=== PATIENT | female | born 1970 | race Caucasian/White ===

== ENCOUNTER → 2023-10-19 14:08 | Outpatient (REF) | payer OTHER, SELFPAY | LOC: HWRAD 14:08 | PROVIDERS: ATTENDING PHYSICIAN Obstetrics & Gynecology; FAMILY PHYSICIAN Physician Assistant | DX: Z12.31 Encounter for screening mammogram for malignant neoplasm of breast (principal); Z78.0 Asymptomatic menopausal state | CPT/HCPCS: 77080 ==

== ENCOUNTER → 2024-01-16 06:36 | Outpatient (REF) | payer OTHER, SELFPAY ==
[2024-01-16 07:17] LABS: % Basophils 1.3 % (0-2); % Eosinophils 5.2 % (0-6); % Immature Granulocytes 0.3 % (0-0.5); % Lymphocytes 42.3 % (20.5-51.1); % Monocytes 11.8 % (1.7-9.3); % Neutrophils 39.1 % (42.2-75.2); Absolute Eosinophils 0.2 10^3/uL (0-0.7); Absolute Lymphocytes 1.3 10^3/uL (1.2-3.4); Absolute Monocytes 0.4 10^3/uL (0.1-0.6); Absolute Neutrophils 1.2 10^3/uL (1.4-6.5); Hemoglobin 14.9 g/dL (12.0-16.0); Mean Corp Hgb Conc. 34.7 g/dL (33.0-37.0); Mean Corpuscular Volume 89.4 fL (81.0-99.0); Nucleated Red Blood Cells % 0 %; Platelet Count 230 10^3/uL (130-400); Red Blood Cell Count 4.81 10^6/uL (4.20-5.40); Red Cell Dist. Width 12.9 % (11.5-14.5); White Blood Cell Count 3.1 10^3/uL (4.8-10.8)
[2024-01-16 07:47] LABS: Intact PTH 44.2 pg/ml (13.6-85.8)
[2024-01-16 08:16] LABS: ALT (SGPT) 25 U/L (0-35); AST (SGOT) 34 U/L (14-36); Albumin 4.6 g/dl (3.5-5.0); Alkaline Phosphatase 62 U/L (38-126); Blood Urea Nitrogen 18 mg/dl (7-17); Calcium 9.8 mg/dl (8.4-10.2); Carbon Dioxide 27 mmol/L (22-30); Chloride 103 mmol/L (98-107); Glucose 91 mg/dl (70-99); Magnesium 2.2 mg/dl (1.6-2.3); Phosphorus 3.6 mg/dl (2.5-4.5); Potassium 5.1 mmol/L (3.5-5.1); Sodium 145 mmol/L (135-145); Total Bilirubin 1.4 mg/dl (0.2-1.3); Total Protein 6.9 g/dl (6.3-8.2); eGFR > 60.00
[2024-01-16 08:20] LABS: Vitamin D, 25-OH*** 101 ng/mL (30-80)
[2024-01-16 08:34] LABS: TSH 1.61 uIU/ml (0.47-4.68)
[2024-01-16 10:49] LABS: tTG IgA Antibody 4.5 EU/ml (0-19); tTG IgG Antibody 11.9 EU/ml (0-19)
[2024-01-17 04:48] LABS: IgA 202 mg/dl (70-400)
== END ==
LOC: REG 06:36
PROVIDERS: ATTENDING PHYSICIAN Physician Assistant; FAMILY PHYSICIAN Physician Assistant
DX: E03.9 Hypothyroidism, unspecified (principal); E20.9 Hypoparathyroidism, unspecified; E55.9 Vitamin D deficiency, unspecified; M81.6 Localized osteoporosis [Lequesne]; R82.994 Hypercalciuria; Z51.81 Encounter for therapeutic drug level monitoring
CPT/HCPCS: 36415; 80053; 82306; 82784; 83516; 83735; 83970; 84100; 84443; 85025; 86231

== ENCOUNTER → 2024-01-18 06:39 | Outpatient (REF) | payer OTHER, SELFPAY ==
[2024-01-18 09:38] LABS: 24 Hour Urine Total Volume 2150 ml
== END ==
LOC: REG 06:39
PROVIDERS: ATTENDING PHYSICIAN Physician Assistant; FAMILY PHYSICIAN Physician Assistant
DX: E03.9 Hypothyroidism, unspecified (principal); E20.9 Hypoparathyroidism, unspecified; E55.9 Vitamin D deficiency, unspecified; M81.6 Localized osteoporosis [Lequesne]; R82.994 Hypercalciuria; Z51.81 Encounter for therapeutic drug level monitoring
CPT/HCPCS: 81050; 82340

== ENCOUNTER → 2024-02-14 10:38 | Outpatient (REF) | payer OTHER, SELFPAY ==
[2024-02-14 11:28] LABS: % Eosinophils 0.7 % (0-6); % Immature Granulocytes 0.3 % (0-0.5); % Lymphocytes 24.1 % (20.5-51.1); % Monocytes 7.6 % (1.7-9.3); % Neutrophils 66.3 % (42.2-75.2); Absolute Basophils 0.1 10^3/uL (0-0.2); Absolute Lymphocytes 1.4 10^3/uL (1.2-3.4); Absolute Monocytes 0.5 10^3/uL (0.1-0.6); Absolute Neutrophils 3.9 10^3/uL (1.4-6.5); Hematocrit 41.7 % (37.0-47.0); Hemoglobin 14.5 g/dL (12.0-16.0); Mean Corp Hgb Conc. 34.8 g/dL (33.0-37.0); Mean Corpuscular Hgb 30.3 pg (27.0-31.0); Mean Corpuscular Volume 87.2 fL (81.0-99.0); Mean Platelet Volume 10.2 fL (7.4-10.4); Nucleated Red Blood Cells % 0 %; Platelet Count 248 10^3/uL (130-400); Red Blood Cell Count 4.78 10^6/uL (4.20-5.40); White Blood Cell Count 5.9 10^3/uL (4.8-10.8)
== END ==
LOC: REG 10:38
PROVIDERS: ATTENDING PHYSICIAN Student in an Organized Health Care Education/Training Program; FAMILY PHYSICIAN Physician Assistant
DX: D72.818 Other decreased white blood cell count (principal)
CPT/HCPCS: 36415; 85025

== ENCOUNTER → 2024-03-21 07:03 | Outpatient (REF) | payer OTHER, SELFPAY ==
[2024-03-21 07:28] LABS: Ionized Calcium 1.18 mMOL/L (1.15-1.33)
[2024-03-21 07:31] LABS: % Basophils 1.3 % (0-2); % Eosinophils 4.3 % (0-6); % Immature Granulocytes 1.3 % (0-0.5); % Lymphocytes 30.3 % (20.5-51.1); % Monocytes 10.8 % (1.7-9.3); Absolute Basophils 0.1 10^3/uL (0-0.2); Absolute Eosinophils 0.2 10^3/uL (0-0.7); Absolute Immature Granulocytes 0.1 10^3/uL (0-0.05); Absolute Lymphocytes 1.4 10^3/uL (1.2-3.4); Absolute Monocytes 0.5 10^3/uL (0.1-0.6); Absolute Neutrophils 2.3 10^3/uL (1.4-6.5); Hematocrit 43.6 % (37.0-47.0); Hemoglobin 14.8 g/dL (12.0-16.0); Mean Corp Hgb Conc. 33.9 g/dL (33.0-37.0); Mean Corpuscular Hgb 30.3 pg (27.0-31.0); Mean Corpuscular Volume 89.3 fL (81.0-99.0); Mean Platelet Volume 9.9 fL (7.4-10.4); Nucleated Red Blood Cells % 0 %; Platelet Count 218 10^3/uL (130-400); Red Blood Cell Count 4.88 10^6/uL (4.20-5.40); Red Cell Dist. Width 12.9 % (11.5-14.5); White Blood Cell Count 4.5 10^3/uL (4.8-10.8)
[2024-03-21 08:17] LABS: ALT (SGPT) 24 U/L (0-35); AST (SGOT) 29 U/L (14-36); Albumin 4.6 g/dl (3.5-5.0); Alkaline Phosphatase 93 U/L (38-126); Blood Urea Nitrogen 16 mg/dl (7-17); Calcium 9.4 mg/dl (8.4-10.2); Carbon Dioxide 28 mmol/L (22-30); Chloride 104 mmol/L (98-107); Glucose 91 mg/dl (70-99); Potassium 4.2 mmol/L (3.5-5.1); Sodium 140 mmol/L (135-145); Total Bilirubin 1.6 mg/dl (0.2-1.3); Total Protein 6.9 g/dl (6.3-8.2); eGFR > 60.00
== END ==
LOC: REG 07:03
PROVIDERS: ATTENDING PHYSICIAN Student in an Organized Health Care Education/Training Program; FAMILY PHYSICIAN Physician Assistant
DX: D72.818 Other decreased white blood cell count (principal); E55.9 Vitamin D deficiency, unspecified; M81.6 Localized osteoporosis [Lequesne]; Z51.81 Encounter for therapeutic drug level monitoring
CPT/HCPCS: 36415; 80053; 82330; 85025

== ENCOUNTER → 2024-04-18 06:38 | Outpatient (REF) | payer OTHER, SELFPAY ==
[2024-04-18 08:22] LABS: % Basophils 1.2 % (0-2); % Eosinophils 9.1 % (0-6); % Immature Granulocytes 0.5 % (0-0.5); % Lymphocytes 34.1 % (20.5-51.1); % Monocytes 11.6 % (1.7-9.3); % Neutrophils 43.5 % (42.2-75.2); Absolute Basophils 0.1 10^3/uL (0-0.2); Absolute Eosinophils 0.4 10^3/uL (0-0.7); Absolute Lymphocytes 1.4 10^3/uL (1.2-3.4); Absolute Monocytes 0.5 10^3/uL (0.1-0.6); Absolute Neutrophils 1.8 10^3/uL (1.4-6.5); Hematocrit 43.9 % (37.0-47.0); Hemoglobin 14.8 g/dL (12.0-16.0); Mean Corp Hgb Conc. 33.7 g/dL (33.0-37.0); Mean Platelet Volume 10.3 fL (7.4-10.4); Nucleated Red Blood Cells % 0 %; Platelet Count 253 10^3/uL (130-400); Red Blood Cell Count 4.93 10^6/uL (4.20-5.40); Red Cell Dist. Width 12.8 % (11.5-14.5); White Blood Cell Count 4.1 10^3/uL (4.8-10.8)
== END ==
LOC: REG 06:38
PROVIDERS: ATTENDING PHYSICIAN Student in an Organized Health Care Education/Training Program; FAMILY PHYSICIAN Physician Assistant
DX: D72.818 Other decreased white blood cell count (principal); E55.9 Vitamin D deficiency, unspecified; E67.3 Hypervitaminosis D; M81.0 Age-related osteoporosis without current pathological fracture; M81.6 Localized osteoporosis [Lequesne]; Z51.81 Encounter for therapeutic drug level monitoring
CPT/HCPCS: 36415; 85025

== ENCOUNTER → 2024-05-29 06:37 | Outpatient (REF) | payer OTHER, SELFPAY ==
[2024-05-29 07:07] LABS: Ionized Calcium 1.13 mMOL/L (1.15-1.33)
[2024-05-29 07:09] LABS: % Basophils 1.5 % (0-2); % Eosinophils 4.8 % (0-6); % Immature Granulocytes 0.3 % (0-0.5); % Lymphocytes 37.5 % (20.5-51.1); % Monocytes 10.6 % (1.7-9.3); % Neutrophils 45.3 % (42.2-75.2); Absolute Basophils 0.1 10^3/uL (0-0.2); Absolute Eosinophils 0.2 10^3/uL (0-0.7); Absolute Lymphocytes 1.2 10^3/uL (1.2-3.4); Absolute Monocytes 0.4 10^3/uL (0.1-0.6); Absolute Neutrophils 1.5 10^3/uL (1.4-6.5); Hematocrit 44.4 % (37.0-47.0); Hemoglobin 14.6 g/dL (12.0-16.0); Mean Corp Hgb Conc. 32.9 g/dL (33.0-37.0); Mean Corpuscular Hgb 29.8 pg (27.0-31.0); Mean Corpuscular Volume 90.6 fL (81.0-99.0); Mean Platelet Volume 9.8 fL (7.4-10.4); Nucleated Red Blood Cells % 0 %; Platelet Count 217 10^3/uL (130-400); Red Cell Dist. Width 13.1 % (11.5-14.5); White Blood Cell Count 3.3 10^3/uL (4.8-10.8)
[2024-05-29 07:41] LABS: ALT (SGPT) 32 U/L (0-35); AST (SGOT) 30 U/L (14-36); Albumin 4.9 g/dl (3.5-5.0); Alkaline Phosphatase 95 U/L (38-126); Blood Urea Nitrogen 15 mg/dl (7-17); Calcium 9.5 mg/dl (8.4-10.2); Carbon Dioxide 28 mmol/L (22-30); Chloride 103 mmol/L (98-107); Glucose 87 mg/dl (70-99); Potassium 4.1 mmol/L (3.5-5.1); Sodium 139 mmol/L (135-145); eGFR > 60.00
== END ==
LOC: REG 06:37
PROVIDERS: ATTENDING PHYSICIAN Student in an Organized Health Care Education/Training Program; FAMILY PHYSICIAN Physician Assistant
DX: D72.818 Other decreased white blood cell count (principal); E55.9 Vitamin D deficiency, unspecified; E67.3 Hypervitaminosis D; M81.0 Age-related osteoporosis without current pathological fracture; M81.6 Localized osteoporosis [Lequesne]; Z51.81 Encounter for therapeutic drug level monitoring
CPT/HCPCS: 36415; 80053; 82330; 85025

== ENCOUNTER → 2024-07-10 06:59 | Outpatient (REF) | payer OTHER, SELFPAY ==
[2024-07-10 07:38] LABS: % Basophils 1.3 % (0-2); % Eosinophils 3.4 % (0-6); % Immature Granulocytes 0.2 % (0-0.5); % Lymphocytes 30.6 % (20.5-51.1); % Neutrophils 55.5 % (42.2-75.2); Absolute Basophils 0.1 10^3/uL (0-0.2); Absolute Eosinophils 0.2 10^3/uL (0-0.7); Absolute Lymphocytes 1.4 10^3/uL (1.2-3.4); Absolute Monocytes 0.4 10^3/uL (0.1-0.6); Absolute Neutrophils 2.6 10^3/uL (1.4-6.5); Hematocrit 44.6 % (37.0-47.0); Hemoglobin 15.2 g/dL (12.0-16.0); Mean Corp Hgb Conc. 34.1 g/dL (33.0-37.0); Mean Corpuscular Hgb 30.6 pg (27.0-31.0); Mean Corpuscular Volume 89.9 fL (81.0-99.0); Mean Platelet Volume 9.7 fL (7.4-10.4); Nucleated Red Blood Cells % 0 %; Platelet Count 229 10^3/uL (130-400); Red Blood Cell Count 4.96 10^6/uL (4.20-5.40); Red Cell Dist. Width 13.3 % (11.5-14.5); White Blood Cell Count 4.7 10^3/uL (4.8-10.8)
[2024-07-10 08:02] LABS: Erythrocyte Sed Rate 8 mm/hour (0-20)
[2024-07-10 10:47] LABS: Folate > 20.0 ng/ml (2.76-20); Vitamin B12 980 pg/ml (239-931)
[2024-07-12 06:17] LABS: ANA, IgG Reflex to HEp-2 None Detected (None Detected)
== END ==
LOC: REG 06:59
PROVIDERS: ATTENDING PHYSICIAN Nurse Practitioner Adult Health
DX: D72.819 Decreased white blood cell count, unspecified (principal)
CPT/HCPCS: 36415; 82607; 82746; 85025; 85652; 86038

== ENCOUNTER → 2024-07-17 06:58 | Outpatient (REF) | payer OTHER, SELFPAY ==
[2024-07-17 07:50] LABS: % Eosinophils 2.6 % (0-6); % Immature Granulocytes 0.4 % (0-0.5); % Lymphocytes 30.8 % (20.5-51.1); % Monocytes 7.4 % (1.7-9.3); % Neutrophils 57.8 % (42.2-75.2); Absolute Basophils 0.1 10^3/uL (0-0.2); Absolute Eosinophils 0.1 10^3/uL (0-0.7); Absolute Lymphocytes 1.5 10^3/uL (1.2-3.4); Absolute Monocytes 0.4 10^3/uL (0.1-0.6); Absolute Neutrophils 2.9 10^3/uL (1.4-6.5); Hematocrit 43.1 % (37.0-47.0); Hemoglobin 14.5 g/dL (12.0-16.0); Mean Corp Hgb Conc. 33.6 g/dL (33.0-37.0); Mean Corpuscular Hgb 30.1 pg (27.0-31.0); Mean Corpuscular Volume 89.6 fL (81.0-99.0); Mean Platelet Volume 10.1 fL (7.4-10.4); Nucleated Red Blood Cells % 0 %; Platelet Count 219 10^3/uL (130-400); Red Blood Cell Count 4.81 10^6/uL (4.20-5.40); Red Cell Dist. Width 13.1 % (11.5-14.5)
== END ==
LOC: REG 06:58
PROVIDERS: ATTENDING PHYSICIAN Nurse Practitioner Adult Health; FAMILY PHYSICIAN Physician Assistant
DX: D72.819 Decreased white blood cell count, unspecified (principal)
CPT/HCPCS: 36415; 85025

== ENCOUNTER → 2024-07-24 06:50 | Outpatient (REF) | payer OTHER, SELFPAY ==
[2024-07-24 08:35] LABS: % Basophils 1.3 % (0-2); % Eosinophils 5.1 % (0-6); % Immature Granulocytes 0.2 % (0-0.5); % Lymphocytes 31.6 % (20.5-51.1); % Monocytes 9.5 % (1.7-9.3); % Neutrophils 52.3 % (42.2-75.2); Absolute Basophils 0.1 10^3/uL (0-0.2); Absolute Eosinophils 0.2 10^3/uL (0-0.7); Absolute Lymphocytes 1.5 10^3/uL (1.2-3.4); Absolute Monocytes 0.5 10^3/uL (0.1-0.6); Absolute Neutrophils 2.5 10^3/uL (1.4-6.5); Hematocrit 41.5 % (37.0-47.0); Hemoglobin 14.1 g/dL (12.0-16.0); Mean Corpuscular Hgb 30.5 pg (27.0-31.0); Mean Corpuscular Volume 89.8 fL (81.0-99.0); Mean Platelet Volume 10.3 fL (7.4-10.4); Nucleated Red Blood Cells % 0 %; Platelet Count 223 10^3/uL (130-400); Red Blood Cell Count 4.62 10^6/uL (4.20-5.40); Red Cell Dist. Width 13.3 % (11.5-14.5); White Blood Cell Count 4.8 10^3/uL (4.8-10.8)
== END ==
LOC: REG 06:50
PROVIDERS: ATTENDING PHYSICIAN Nurse Practitioner Adult Health; FAMILY PHYSICIAN Physician Assistant
DX: D72.819 Decreased white blood cell count, unspecified (principal)
CPT/HCPCS: 36415; 85025

== ENCOUNTER → 2024-07-31 06:53 | Outpatient (REF) | payer OTHER, SELFPAY ==
[2024-07-31 08:18] LABS: % Basophils 1.5 % (0-2); % Eosinophils 4.9 % (0-6); % Immature Granulocytes 0.2 % (0-0.5); % Lymphocytes 26.6 % (20.5-51.1); % Neutrophils 56.8 % (42.2-75.2); Absolute Basophils 0.1 10^3/uL (0-0.2); Absolute Eosinophils 0.3 10^3/uL (0-0.7); Absolute Lymphocytes 1.5 10^3/uL (1.2-3.4); Absolute Monocytes 0.6 10^3/uL (0.1-0.6); Absolute Neutrophils 3.1 10^3/uL (1.4-6.5); Hemoglobin 14.6 g/dL (12.0-16.0); Mean Corpuscular Hgb 30.5 pg (27.0-31.0); Mean Corpuscular Volume 89.8 fL (81.0-99.0); Mean Platelet Volume 10.3 fL (7.4-10.4); Nucleated Red Blood Cells % 0 %; Platelet Count 229 10^3/uL (130-400); Red Blood Cell Count 4.79 10^6/uL (4.20-5.40); Red Cell Dist. Width 13.2 % (11.5-14.5); White Blood Cell Count 5.5 10^3/uL (4.8-10.8)
== END ==
LOC: REG 06:53
PROVIDERS: ATTENDING PHYSICIAN Nurse Practitioner Adult Health
DX: D72.819 Decreased white blood cell count, unspecified (principal)
CPT/HCPCS: 36415; 85025

== ENCOUNTER → 2024-08-07 06:47 | Outpatient (REF) | payer OTHER, SELFPAY ==
[2024-08-07 07:26] LABS: % Basophils 1.4 % (0-2); % Eosinophils 3.8 % (0-6); % Immature Granulocytes 0.2 % (0-0.5); % Lymphocytes 27.1 % (20.5-51.1); % Monocytes 8.9 % (1.7-9.3); % Neutrophils 58.6 % (42.2-75.2); Absolute Basophils 0.1 10^3/uL (0-0.2); Absolute Eosinophils 0.2 10^3/uL (0-0.7); Absolute Lymphocytes 1.3 10^3/uL (1.2-3.4); Absolute Monocytes 0.4 10^3/uL (0.1-0.6); Absolute Neutrophils 2.9 10^3/uL (1.4-6.5); Hematocrit 42.8 % (37.0-47.0); Hemoglobin 14.6 g/dL (12.0-16.0); Mean Corp Hgb Conc. 34.1 g/dL (33.0-37.0); Mean Corpuscular Hgb 30.4 pg (27.0-31.0); Mean Platelet Volume 10.4 fL (7.4-10.4); Nucleated Red Blood Cells % 0 %; Platelet Count 226 10^3/uL (130-400); Red Blood Cell Count 4.81 10^6/uL (4.20-5.40); Red Cell Dist. Width 13.1 % (11.5-14.5)
== END ==
LOC: REG 06:47
PROVIDERS: ATTENDING PHYSICIAN Nurse Practitioner Adult Health; FAMILY PHYSICIAN Physician Assistant
DX: D72.819 Decreased white blood cell count, unspecified (principal)
CPT/HCPCS: 36415; 85025

== ENCOUNTER → 2024-08-14 06:49 | Outpatient (REF) | payer OTHER, SELFPAY ==
[2024-08-14 08:00] LABS: % Eosinophils 2.9 % (0-6); % Immature Granulocytes 0.2 % (0-0.5); % Lymphocytes 31.7 % (20.5-51.1); % Monocytes 10.2 % (1.7-9.3); Absolute Eosinophils 0.1 10^3/uL (0-0.7); Absolute Lymphocytes 1.3 10^3/uL (1.2-3.4); Absolute Monocytes 0.4 10^3/uL (0.1-0.6); Absolute Neutrophils 2.2 10^3/uL (1.4-6.5); Hematocrit 42.8 % (37.0-47.0); Hemoglobin 14.8 g/dL (12.0-16.0); Mean Corp Hgb Conc. 34.6 g/dL (33.0-37.0); Mean Corpuscular Hgb 30.6 pg (27.0-31.0); Mean Corpuscular Volume 88.4 fL (81.0-99.0); Nucleated Red Blood Cells % 0 %; Platelet Count 209 10^3/uL (130-400); Red Blood Cell Count 4.84 10^6/uL (4.20-5.40); Red Cell Dist. Width 13.1 % (11.5-14.5); White Blood Cell Count 4.1 10^3/uL (4.8-10.8)
== END ==
LOC: REG 06:49
PROVIDERS: ATTENDING PHYSICIAN Nurse Practitioner Adult Health; FAMILY PHYSICIAN Physician Assistant
DX: D72.819 Decreased white blood cell count, unspecified (principal)
CPT/HCPCS: 36415; 85025

== ENCOUNTER → 2024-08-21 06:53 | Outpatient (REF) | payer OTHER, SELFPAY ==
[2024-08-21 07:25] LABS: Ionized Calcium 1.16 mMOL/L (1.15-1.33)
[2024-08-21 07:27] LABS: % Basophils 1.3 % (0-2); % Eosinophils 4.8 % (0-6); % Immature Granulocytes 0.3 % (0-0.5); % Lymphocytes 36.3 % (20.5-51.1); % Monocytes 9.6 % (1.7-9.3); % Neutrophils 47.7 % (42.2-75.2); Absolute Basophils 0.1 10^3/uL (0-0.2); Absolute Eosinophils 0.2 10^3/uL (0-0.7); Absolute Lymphocytes 1.4 10^3/uL (1.2-3.4); Absolute Monocytes 0.4 10^3/uL (0.1-0.6); Absolute Neutrophils 1.8 10^3/uL (1.4-6.5); Hemoglobin 14.5 g/dL (12.0-16.0); Mean Corp Hgb Conc. 33.7 g/dL (33.0-37.0); Mean Corpuscular Hgb 30.5 pg (27.0-31.0); Mean Corpuscular Volume 90.3 fL (81.0-99.0); Nucleated Red Blood Cells % 0 %; Platelet Count 203 10^3/uL (130-400); Red Blood Cell Count 4.76 10^6/uL (4.20-5.40); White Blood Cell Count 3.8 10^3/uL (4.8-10.8)
[2024-08-21 07:53] LABS: ALT (SGPT) 23 U/L (0-35); AST (SGOT) 27 U/L (14-36); Albumin 4.5 g/dl (3.5-5.0); Alkaline Phosphatase 71 U/L (38-126); Blood Urea Nitrogen 15 mg/dl (7-17); Calcium 9.3 mg/dl (8.4-10.2); Carbon Dioxide 29 mmol/L (22-30); Chloride 105 mmol/L (98-107); Glucose 86 mg/dl (70-99); Potassium 4.4 mmol/L (3.5-5.1); Sodium 138 mmol/L (135-145); Total Bilirubin 1.5 mg/dl (0.2-1.3); eGFR > 60.00
== END ==
LOC: REG 06:53
PROVIDERS: ATTENDING PHYSICIAN Student in an Organized Health Care Education/Training Program; FAMILY PHYSICIAN Physician Assistant
DX: D72.818 Other decreased white blood cell count (principal); D72.819 Decreased white blood cell count, unspecified; D55.9 Anemia due to enzyme disorder, unspecified; E67.3 Hypervitaminosis D; M81.0 Age-related osteoporosis without current pathological fracture; M81.6 Localized osteoporosis [Lequesne]; Z51.81 Encounter for therapeutic drug level monitoring
CPT/HCPCS: 36415; 80053; 82330; 85025

== ENCOUNTER → 2024-11-13 07:06 | Outpatient (REF) | payer OTHER, SELFPAY ==
[2024-11-13 07:47] LABS: Hematocrit 42.2 % (37.0-47.0); Hemoglobin 14.4 g/dL (12.0-16.0); Mean Corp Hgb Conc. 34.1 g/dL (33.0-37.0); Mean Corpuscular Volume 89.6 fL (81.0-99.0); Nucleated Red Blood Cells % 0 %; Platelet Count 192 10^3/uL (130-400); Red Cell Dist. Width 13.0 % (11.5-14.5)
[2024-11-13 08:01] LABS: ALT (SGPT) 25 U/L (0-35); AST (SGOT) 26 U/L (14-36); Albumin 4.6 g/dl (3.5-5.0); Alkaline Phosphatase 68 U/L (38-126); Blood Urea Nitrogen 21 mg/dl (7-17); Calcium 10.0 mg/dl (8.4-10.2); Carbon Dioxide 25 mmol/L (22-30); Chloride 107 mmol/L (98-107); Glucose 80 mg/dl (70-99); Potassium 4.2 mmol/L (3.5-5.1); Sodium 140 mmol/L (135-145); Total Protein 7.0 g/dl (6.3-8.2); eGFR > 60.00
== END ==
LOC: REG 07:06
PROVIDERS: ATTENDING PHYSICIAN Student in an Organized Health Care Education/Training Program; FAMILY PHYSICIAN Physician Assistant
DX: D72.818 Other decreased white blood cell count (principal); D72.819 Decreased white blood cell count, unspecified; E55.9 Vitamin D deficiency, unspecified; E67.3 Hypervitaminosis D; M81.0 Age-related osteoporosis without current pathological fracture; M81.6 Localized osteoporosis [Lequesne]; Z51.81 Encounter for therapeutic drug level monitoring
CPT/HCPCS: 36415; 80053; 82330; 85025

== ENCOUNTER → 2024-12-23 15:42 | Outpatient (REF) | payer OTHER, SELFPAY ==
[2024-12-27 05:12] LABS: HPV, High Risk Not Detected; HPV, High Risk Source Cervical
== END ==
LOC: CPAP 15:42
PROVIDERS: ATTENDING PHYSICIAN Obstetrics & Gynecology
DX: Z01.419 Encounter for gynecological examination (general) (routine) without abnormal findings (principal)
CPT/HCPCS: 87624

== ENCOUNTER → 2025-01-21 18:04 | Outpatient (REF) | payer OTHER, SELFPAY | LOC: WDC 18:04 | PROVIDERS: ATTENDING PHYSICIAN Obstetrics & Gynecology; FAMILY PHYSICIAN Physician Assistant | DX: Z12.31 Encounter for screening mammogram for malignant neoplasm of breast (principal) | CPT/HCPCS: 77063; 77067 ==

== ENCOUNTER → 2025-02-11 06:46 | Outpatient (REF) | payer OTHER, SELFPAY ==
[2025-02-11 07:42] LABS: Hematocrit 42.8 % (37.0-47.0); Hemoglobin 14.4 g/dL (12.0-16.0); Mean Corp Hgb Conc. 33.6 g/dL (33.0-37.0); Mean Corpuscular Volume 90.9 fL (81.0-99.0); Nucleated Red Blood Cells % 0 %; Platelet Count 210 10^3/uL (130-400); Red Cell Dist. Width 13.0 % (11.5-14.5)
[2025-02-11 08:08] LABS: ALT (SGPT) 24 U/L (0-35); AST (SGOT) 30 U/L (14-36); Albumin 4.7 g/dl (3.5-5.0); Alkaline Phosphatase 74 U/L (38-126); Blood Urea Nitrogen 17 mg/dl (7-17); Calcium 9.5 mg/dl (8.4-10.2); Carbon Dioxide 29 mmol/L (22-30); Chloride 102 mmol/L (98-107); Glucose 85 mg/dl (70-99); HDL Cholesterol 74 mg/dl; LDL Cholesterol, Calculated 105 mg/dl; Potassium 4.2 mmol/L (3.5-5.1); Sodium 138 mmol/L (135-145); Total Protein 7.2 g/dl (6.3-8.2); Very Low Density Lipoprotein 26 mg/dl (0-30); eGFR > 60.00
[2025-02-11 08:28] LABS: Vitamin D, 25-OH*** 62.4 ng/mL (30-80)
[2025-02-13 00:57] LABS: Lipoprotein a (Lp a) 92 mg/dL (<=29)
== END ==
LOC: REG 06:46
PROVIDERS: ATTENDING PHYSICIAN Student in an Organized Health Care Education/Training Program; FAMILY PHYSICIAN Physician Assistant
DX: D72.818 Other decreased white blood cell count (principal); D72.819 Decreased white blood cell count, unspecified; E55.9 Vitamin D deficiency, unspecified; E67.3 Hypervitaminosis D; M81.0 Age-related osteoporosis without current pathological fracture; M81.6 Localized osteoporosis [Lequesne]; Z51.81 Encounter for therapeutic drug level monitoring; E78.00 Pure hypercholesterolemia, unspecified
CPT/HCPCS: 36415; 80053; 80061; 82306; 83695; 85025

== ENCOUNTER → 2025-02-18 08:25 | Outpatient (REF) | payer OTHER, SELFPAY | LOC: RAD 08:25 | PROVIDERS: ATTENDING PHYSICIAN Student in an Organized Health Care Education/Training Program; FAMILY PHYSICIAN Physician Assistant | DX: M81.0 Age-related osteoporosis without current pathological fracture (principal) | CPT/HCPCS: 77080 ==